=== PATIENT | male | born 2000 | race African-American/Black ===

== ENCOUNTER 2022-07-17 14:09 | Emergency (ER) | payer OTHER, SELFPAY ==
--- NOTE | ~2022-07-17 | XR_ITS ---
EXAMINATION: XR HAND, RIGHT CLINICAL INFORMATION: Injury COMPARISON: None TECHNIQUE: PA, lateral, and oblique views of the right hand. FINDINGS: Mildly displaced fracture of the left fifth metacarpal neck, boxer's fracture. No other fractures. Metacarpophalangeal joint and interphalangeal joints are intact. Surrounding soft tissues otherwise unremarkable. XR/XR hand RT 2V IMPRESSION: Mildly displaced Boxer's fracture of the fifth metacarpal.
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
[2022-07-17 14:45] VITALS: BP 156/102; PULSE 83; RESP 19; TEMP 36.6; O2SAT 98; BMI 31.3
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
[2022-07-17] MEDS: Diphth,Pertus(ACell),Tet Adult 0.5 ML SYRINGE IM (15:23)
== END 2022-07-17 16:59 | disposition home or self-care (01) ==
PROVIDERS: Emergency Provider Emergency Medicine
DX: S62.91XA Unspecified fracture of right hand, initial encounter for closed fracture (principal); S01.111A Laceration without foreign body of right eyelid and periocular area, initial encounter; S60.511A Abrasion of right hand, initial encounter; R51.9 Headache, unspecified; Y29.XXXA Contact with blunt object, undetermined intent, initial encounter; Y93.9 Activity, unspecified; Y92.9 Unspecified place or not applicable; Y99.9 Unspecified external cause status; Z23 Encounter for immunization
CPT/HCPCS: 29125; 29130; 70450; 73120; 90471; 90715; 99283; 99284

== ENCOUNTER 2022-07-26 17:24 | Outpatient (REF) | payer OTHER, SELFPAY ==
--- NOTE | ~2022-07-26 | XR_ITS ---
EXAMINATION: XR HAND, RIGHT CLINICAL INFORMATION: Pain unspecified hand. History of fifth metacarpal fracture. COMPARISON: 07/17/2022 TECHNIQUE: PA, lateral, and oblique views of the right hand. FINDINGS: Oblique fifth metacarpal distal diaphyseal fracture remains visible with approximately 30% lateral displacement and mild radial and volar angulation persisting. Early periosteal reaction is seen. Mild adjacent soft tissue swelling. XR/XR hand RT min 3V IMPRESSION: Healing fifth metacarpal fracture with mild displacement and angulation. Mild soft tissue swelling.
== END 2022-07-26 17:25 | disposition home or self-care (01) ==
LOC: HO.HOSX 17:24
PROVIDERS: Visit Provider Physician Assistant
DX: S62.306A Unspecified fracture of fifth metacarpal bone, right hand, initial encounter for closed fracture (principal); X58.XXXA Exposure to other specified factors, initial encounter; Y93.9 Activity, unspecified; Y92.9 Unspecified place or not applicable; Y99.9 Unspecified external cause status
CPT/HCPCS: 73130; 99202

== ENCOUNTER 2022-08-01 10:38 | Day surgery (SDC) | payer OTHER, SELFPAY ==
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
--- NOTE | ~2022-08-01 | FL_ITS ---
EXAMINATION: XR FL WITH IMAGES CLINICAL INFORMATION: Fifth metacarpal OR internal fixation. COMPARISON: 07/26/2022 TECHNIQUE: Fluoroscopy Supervised By: Dr. Jamila Ellington. Fluoroscopy Time: 29.2 seconds. Cumulative Dose: 0.6957 mGy. DAP: 0.0420 Gycm2. Images: 6. FINDINGS: Intraoperative images demonstrate K-wire placement with improvement in alignment of the right 5th metacarpal fracture. FL/FL guidance in OR IMPRESSION: Intraoperative fluoroscopy for orthopedic procedure.
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
[2022-08-01 11:29] VITALS: BMI 29.7
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
[2022-08-01 11:48] VITALS: BP 142/84; PULSE 779; RESP 16; TEMP 36.9; O2SAT 98
[2022-08-01] MEDS: Lactated Ringers 1,000 ML 100 ML IVCONT (11:50)
[2022-08-01 13:44] VITALS: BP 165/58; PULSE 88; RESP 14; TEMP 36.4; O2SAT 98
[2022-08-01 13:49] VITALS: BP 176/104; PULSE 89; RESP 12; O2SAT 100
[2022-08-01 13:54] VITALS: BP 146/81; PULSE 72; RESP 16; O2SAT 98
[2022-08-01] MEDS: oxyCODONE HCl Immed Release 5 MG TABLET PO (13:58)
[2022-08-01] MEDS: Acetaminophen 325 MG TABLET 650 MG PO (13:58)
[2022-08-01 13:59] VITALS: BP 154/94; PULSE 73; RESP 16; TEMP 36.6; O2SAT 100
[2022-08-01 14:14] VITALS: BP 160/87; PULSE 71; RESP 14; TEMP 36.6; O2SAT 98
== END 2022-08-01 14:55 | disposition home or self-care (01) ==
PROVIDERS: Visit Provider Orthopaedic Surgery
PROC: (CPT 26615; principal; 2022-08-01 12:00)
DX: S62.336A Displaced fracture of neck of fifth metacarpal bone, right hand, initial encounter for closed fracture (principal); W22.09XA Striking against other stationary object, initial encounter; R20.0 Anesthesia of skin; R20.2 Paresthesia of skin; Y93.89 Activity, other specified; Y92.9 Unspecified place or not applicable; Y99.8 Other external cause status; F12.90 Cannabis use, unspecified, uncomplicated
CPT/HCPCS: 26608; J0690; J1100; J1885; J2250; J2405; J3010

== ENCOUNTER → 2022-08-09 13:44 | Outpatient (BNVA) | payer OTHER, SELFPAY | PROVIDERS: Visit Provider Physician Assistant | DX: Z13.89 Encounter for screening for other disorder (principal) ==

== ENCOUNTER 2022-08-16 09:42 | Outpatient (REF) | payer OTHER, SELFPAY ==
--- NOTE | ~2022-08-16 | XR_ITS ---
EXAMINATION: XR HAND, RIGHT CLINICAL INFORMATION: Right hand pain. COMPARISON: 08/01/2022 and studies dating back to 07/17/2022. TECHNIQUE: 3 views of the right hand. FINDINGS: There is no significant change in alignment of the oblique fracture through the diaphysis of the right 5th metacarpal. K-wire is seen traversing the fracture site. Since previous study there has been some periosteal new bone formation with question of bridging the fracture site. XR/XR hand RT min 3V IMPRESSION: No change in alignment of healing right 5th metacarpal fracture.
== END 2022-08-16 09:43 | disposition home or self-care (01) ==
LOC: HO.HOSX 09:42
PROVIDERS: Visit Provider Orthopaedic Surgery
DX: S62.306A Unspecified fracture of fifth metacarpal bone, right hand, initial encounter for closed fracture (principal); X58.XXXA Exposure to other specified factors, initial encounter; Y93.9 Activity, unspecified; Y92.9 Unspecified place or not applicable; Y99.9 Unspecified external cause status
CPT/HCPCS: 73130; 99212

== ENCOUNTER 2022-09-20 09:32 | Outpatient (REF) | payer OTHER, SELFPAY | END 2022-09-20 09:33 | disposition home or self-care (01) | LOC: HO.HOSX 09:32 | PROVIDERS: Visit Provider Orthopaedic Surgery | DX: Z13.89 Encounter for screening for other disorder (principal) ==

== ENCOUNTER 2022-10-04 14:24 | Outpatient (REF) | payer OTHER, SELFPAY | END 2022-10-04 14:25 | disposition home or self-care (01) | LOC: HO.HOSX 14:24 | PROVIDERS: Visit Provider Physician Assistant | DX: Z13.89 Encounter for screening for other disorder (principal) ==

== ENCOUNTER 2023-09-02 02:04 | Emergency (ER) | payer OTHER, SELFPAY ==
--- NOTE | ~2023-09-02 | XR_ITS ---
EXAMINATION: XR FOOT, RIGHT CLINICAL INFORMATION: Pain. History of foreign body. COMPARISON: None available. TECHNIQUE: AP, lateral, and oblique views of the right foot. FINDINGS: The bone mineralization is normal. There are numerous radiopaque densities along the second and third metatarsal heads extending to the plantar aspect of the foot. There is a likely chronic injury of the medial third and lateral second metatarsal heads. No definitive acute abnormality identified. The soft tissues are otherwise unremarkable. XR/XR foot RT min 3V IMPRESSION: Numerous radiopaque densities along the second and third metatarsal heads extending to the plantar aspect of the foot. There is a likely chronic injury of the medial third and lateral second metatarsal heads. No definitive acute abnormality seen.
[2023-09-02 02:13] VITALS: BP 159/87; PULSE 87; RESP 14; TEMP 37.1; O2SAT 99; BMI 34.4
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
== END 2023-09-02 03:45 | disposition home or self-care (01) ==
PROVIDERS: Emergency Provider Emergency Medicine
DX: M79.5 Residual foreign body in soft tissue (principal); M79.671 Pain in right foot
CPT/HCPCS: 73630; 99282; 99283

== ENCOUNTER 2023-12-30 03:49 | Emergency (ER) | payer OTHER, SELFPAY ==
[2023-12-30 03:51] VITALS: BP 154/90; PULSE 99; RESP 18; TEMP 36.8; O2SAT 100; BMI 31.3
[2023-12-30] MEDS: Benzonatate 100 MG CAPSULE PO (04:01)
[2023-12-30 04:13] LABS: IDNOW Serial# 08D9AD1C; Strep A Nucleic Acid Negative (Negative)
[2023-12-30 04:16] LABS: COVID-19 Test Negative (Negative); IDNOW Serial# 152EDE1D
[2023-12-30 04:22] LABS: IDNOW Serial# 9DB6401D; Influenza A Negative (Negative); Influenza B2 Negative (Negative)
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
[2023-12-30 04:38] VITALS: BP 154/90; PULSE 99; RESP 18; TEMP 36.8; O2SAT 100
== END 2023-12-30 04:39 | disposition home or self-care (01) ==
PROVIDERS: Emergency Provider Emergency Medicine
DX: J02.9 Acute pharyngitis, unspecified (principal); Z03.818 Encounter for observation for suspected exposure to other biological agents ruled out
CPT/HCPCS: 87502; 87635; 87651; 99282; 99283